=== PATIENT | male | born 1995 | race Caucasian/White ===

== ENCOUNTER 2017-07-23 16:17 | Emergency (ER) | payer OTHER ==
[~2017-07-23] VITALS: Ht 175.3 cm; Wt 72.6 kg
[2017-07-23] MEDS ORDERED: ONDANSETRON HCL 4 MG/2 ML VIAL IV ONE (17:30)
[2017-07-23] MEDS ORDERED: BACITRACIN TOP OINT 1 UD PKG TOP ONE ×2 (17:30→17:45)
[2017-07-23] MEDS ORDERED: HYDROmorphone HCL 2 MG/ML VL IV ONE (17:30)
[2017-07-23 19:36] VITALS: BP 133/76
== END 2017-07-23 19:47 | disposition home or self-care (01) ==
LOC: ER 16:26
DX: S32.018A Other fracture of first lumbar vertebra, initial encounter for closed fracture (principal); S40.012A Contusion of left shoulder, initial encounter; S80.212A Abrasion, left knee, initial encounter; S80.211A Abrasion, right knee, initial encounter; V28.4XXA Motorcycle driver injured in noncollision transport accident in traffic accident, initial encounter; Y93.89 Activity, other specified; Y99.8 Other external cause status; Y92.89 Other specified places as the place of occurrence of the external cause
CPT/HCPCS: 71250; 73030; 73562; 74176; 96374; 96375; 99284; J1170; J2405